=== PATIENT | male | born 2000 | race American Indian/Alaskan Native ===

== ENCOUNTER 2019-02-19 19:31 | Emergency (ER) | payer OTHER ==
[2019-02-19] MEDS ORDERED: NACL 0.9% 1000 ML 1,000 ML IV ONE (20:09)
--- NOTE | 2019-02-19 20:09 | Emergency Department Report ---
ED General Adult HPI - General Chief complaint: Medical Clearance Stated complaint: HEAT ILLNESS Time Seen by Provider: 02/19/19 19:58 Source: patient, EMS (ems notes not available at time of chart dictation), RN notes reviewed Mode of arrival: Stretcher Limitations: No Limitations - History of Present Illness Initial comments: This is a 18-year-old gentleman, not known to this provider previously, who reports that he has no chronic medical conditions, I does not take any prescription medications. He reports his primary care doctor is Dr. Blanc. Patient is reportedly a collegiate football athlete, who reports that he was in his usual state of health, earlier on today, and had completed football practice in the extreme heat. He reports that afterwards, he felt lightheaded, and "passed out." Prior to the event, he reports no physical pain today, and at this point time, denies physical pain. He states that he has no pulmonary embolus or DVT risk factors, and specifically denied headache, neck pain, chest pain, abdominal pain, shortness of breath. The patient has no complaints at this time, and is asking to be discharged. He reports that his primary care doctor, Dr. Blanc had cleared him to participate in collegiate sports. -: Sudden Consistency: now resolved Improves with: none Worsens with: none Associated Symptoms: denies other symptoms, syncope - Related Data Allergies Allergy/AdvReac Type Severity Reaction Status Date / Time No Known Allergies Allergy Unverified 02/19/19 19:45 ED Review of Systems ROS: Stated complaint: HEAT ILLNESS Other details as noted in HPI Comment: All other systems reviewed and negative Cardiovascular: syncope ED Past Medical Hx - Past Medical History Previous Medical History?: No - Surgical History Past Surgical History?: No - Social History Smoking Status: Never Smoker Substance Use Type: None ED Physical Exam - General Limitations: No Limitations General appearance: alert, in no apparent distress - Head Head exam: Present: atraumatic, normocephalic - Eye Eye exam: Present: normal appearance, EOMI. Absent: nystagmus Pupils: Present: other (visual acuity intact to finger counting and color perception at close distance) - ENT ENT exam: Present: normal exam, normal orophraynx, mucous membranes moist, normal external ear exam - Neck Neck exam: Present: normal inspection, full ROM. Absent: tenderness, meningismus - Respiratory Respiratory exam: Present: normal lung sounds bilaterally. Absent: respiratory distress - Cardiovascular Cardiovascular Exam: Present: regular rate, normal rhythm, normal heart sounds. Absent: bradycardia, tachycardia, irregular rhythm, systolic murmur, diastolic murmur, rubs, gallop - GI/Abdominal GI/Abdominal exam: Present: soft. Absent: distended, tenderness, guarding, rebound, rigid, pulsatile mass - Rectal Rectal exam: Present: deferred - Extremities Exam Extremities exam: Present: normal inspection, full ROM, other (2+ pulses noted in the bilateral upper, lower extremities. Compartments soft. No long bony tenderness. The pelvis is stable.). Absent: pedal edema, joint swelling, calf tenderness - Back Exam Back exam: Present: normal inspection, full ROM. Absent: tenderness, CVA tenderness (R), CVA tenderness (L), paraspinal tenderness, vertebral tenderness - Neurological Exam Neurological exam: Present: alert, other (Extraocular movements intact. Tongue midline. No facial droop. Facial sensation intact to light touch in the V1, V2, V3 distribution bilaterally. 5 and 5 strength in 4 extremities.. Sensation is intact to light touch in 4 extremities.). Absent: motor sensory deficit - Psychiatric Psychiatric exam: Present: normal affect, normal mood - Skin Skin exam: Present: warm, dry, intact, normal color. Absent: rash ED Course Vital Signs 02/19/19 02/19/19 02/19/19 19:55 20:21 20:30 Temperature 98 F Pulse Rate 76 75 84 Respiratory 18 11 L Rate Blood Pressure 120/63 108/70 O2 Sat by Pulse 100 Oximetry 02/19/19 02/19/19 02/19/19 20:45 21:00 21:15 Temperature Pulse Rate 75 82 79 Respiratory 15 17 12 Rate Blood Pressure 126/87 126/87 130/93 O2 Sat by Pulse Oximetry 02/19/19 21:17 Temperature Pulse Rate Respiratory Rate Blood Pressure O2 Sat by Pulse 98 Oximetry - Reevaluation(s) Reevaluation #1: 02/19/19 20:45 Differential diagnosis, including but not limited to: Heat exhaustion, orthostasis, vagal event, dehydration, electrolyte derangement, structural cardiac disease Assessment and plan: 18-year-old gentleman, well-built, well-developed, with no acute complaints at this time, with no pulmonary embolism or DVT risk factors, low risk by well's criteria, not tachycardic, not hypoxic, not tachypneic, perc negative, likely with heat exhaustion/syncope. This is obviously resolved at this point in time. He is speaking quite comfortably to family, and does not appear to be in any acute distress. Screening laboratory studies and EKG ordered. If unremarkable, patient will be counseled to not drive, operate motor vehicles for the next 6 months, and he'll need to follow-up with an outpatient primary care doctor or order entry technician to obtain clearance to return to sports, and to operate motor vehicles. Reevaluation #2: 02/19/19 21:49 Laboratory studies unremarkable. Patient resting comfortably and in no acute distress. No additional episodes of loss of consciousness. Vital signs unremarkable. Patient is medically suitable for discharge at this point in time. ED Medical Decision Making - Lab Data Result diagrams: 02/19/19 20:41 02/19/19 20:41 Vital Signs 02/19/19 19:55 Temperature 98 F Pulse Rate 76 Respiratory 18 Rate Blood Pressure 120/63 O2 Sat by Pulse 100 Oximetry Vital Signs 02/19/19 02/19/19 02/19/19 19:55 20:21 20:30 Temperature 98 F Pulse Rate 76 75 84 Respiratory 18 11 L Rate Blood Pressure 120/63 108/70 O2 Sat by Pulse 100 Oximetry 02/19/19 02/19/19 02/19/19 20:45 21:00 21:15 Temperature Pulse Rate 75 82 79 Respiratory 15 17 12 Rate Blood Pressure 126/87 126/87 130/93 O2 Sat by Pulse Oximetry 02/19/19 21:17 Temperature Pulse Rate Respiratory Rate Blood Pressure O2 Sat by Pulse 98 Oximetry Lab Results 02/19/19 02/19/19 02/19/19 Range/Units 20:41 20:41 20:41 WBC 9.9 (4.5-11.0) K/mm3 RBC 5.14 H (3.65-5.03) M/mm3 Hgb 14.2 (11.8-15.2) gm/dl Hct 43.8 (35.5-45.6) % MCV 85 (84-94) fl MCH 28 (28-32) pg MCHC 32 (32-34) % RDW 13.2 (13.2-15.2) % Plt Count 239 (140-440) K/mm3 Sodium 141 (137-145) mmol/L Potassium 4.9 (3.6-5.0) mmol/L Chloride 103.8 (98-107) mmol/L Carbon Dioxide 26 (22-30) mmol/L Anion Gap 16 mmol/L BUN 18 (9-20) mg/dL Creatinine 1.4 (0.8-1.5) mg/dL Estimated GFR > 60 ml/min BUN/Creatinine Ratio 13 % Glucose 92 (75-100) mg/dL Calcium 9.7 (8.4-10.2) mg/dL Magnesium 2.00 (1.7-2.3) mg/dL Total Creatine Kinase 635 H (55-170) units/L - EKG Data -: EKG Interpreted by Id EKG shows normal: sinus rhythm Rate: normal - EKG Data When compared to previous EKG there are: previous EKG unavailable 02/19/19 20:47 There is no prior EKG available for comparison. This is a sinus rhythm, 71 bpm, normal axis, QTC within normal limits, W[place] interval within normal limits, high left ventricular voltage, incomplete right bundle branch block, early repolarization, no endorsement of chest pain, the EKG is abnormal, the EKG is not consistent with ST elevation myocardial infarction. Critical care attestation.: If time is entered above; I have spent that time in minutes in the direct care of this critically ill patient, excluding procedure time. ED Disposition Clinical Impression: History of syncope Is pt being admited?: No Does the pt Need Aspirin: No Condition: Good Instructions: Heat Exhaustion (ED), Syncope (ED) Additional Instructions: Make certain to drink 4-6 cups of water per day, for the foreseeable future. Do not drive or operate motor vehicles for the next 6 months. Patient may return to college, but he may not return to sports or physical activity until cleared to do so by either your primary care doctor, order entry technician, or sports medicine physician. Return to sports without clearance may result in sudden cardiac deat h. Please return to the emergency room right away with projectile vomiting, change in mental status, confusion, inability to tolerate liquid feeds, new, worsening or different symptoms not present on the initial emergency room evaluation. Recommend follow-up with an outpatient primary care doctor or order entry technician within the next 3-5 days. Referrals: [facility] [Provider Group] - 3-5 Days [facility] [Provider Group] - 3-5 Days [facility] [Provider Group] - 3-5 Days
[2019-02-19 20:55] LABS: Hematocrit 43.8 % (35.5-45.6); Hemoglobin 14.2 gm/dl (11.8-15.2); Mean Corpuscular HGB Conc 32 % (32-34); Mean Corpuscular Volume 85 fl (84-94); Platelet Count 239 K/mm3 (140-440); Red Blood Count 5.14 M/mm3 (3.65-5.03); Red Cell Distribution Width 13.2 % (13.2-15.2)
[2019-02-19 21:18] LABS: BUN/Creatinine Ratio 13; Blood Urea Nitrogen 18 mg/dL (9-20); Calcium 9.7 mg/dL (8.4-10.2); Hemolysis Index 14
[2019-02-19 22:20] VITALS: BP 141/83
== END 2019-02-19 22:26 | disposition home or self-care (01) ==
LOC: ED 19:31
DX: R55 Syncope and collapse (principal)
CPT/HCPCS: 36415; 80048; 82550; 83735; 84443; 85027; 93005; 93010; 96360; 99284; J7030